=== PATIENT | female | born 1995 ===

== ENCOUNTER 2018-11-25 17:02 | Emergency (ER) | payer BC ==
[2018-11-25 17:22] VITALS: BP 124/76; PULSE 98; RESP 18; TEMP 98.1; O2SAT 95
--- NOTE | 2018-11-25 18:38 | C.PDOC ---
History Of Present Illness 23 year old female presents to the ED complaining of allergic reaction for 3 days. Notes itching rash to face. Denies eating anything new or using any new products. Reports she took Benadryl and Zyrtec without relief. Denies prior episodes of similar symptoms. Reports she was on vacation in [place] during onset of symptoms. Denies any shortness of breath, throat swelling, mouth swelling, difficulty eating, fever, chills, or any other complaints. Time Seen by Provider: 11/25/18 18:06 Chief Complaint (Nursing): Allergic Reaction History Per: Patient History/Exam Limitations: no limitations Onset/Duration Of Symptoms: Days (3) Current Symptoms Are (Timing): Still Present Possible Cause: Unknown Associated Symptoms: Skin Rash, Itching. denies: Trouble Swallowing Home/EMS Treatment: Benadryl, Other (Zyrtec ) Past Medical History Reviewed: Historical Data, Nursing Documentation, Vital Signs Vital Signs: Last Vital Signs Temp 98.1 F 11/25/18 17:17 Pulse 98 H 11/25/18 17:17 Resp 18 11/25/18 17:17 BP 124/76 11/25/18 17:17 Pulse Ox 95 11/25/18 17:17 - Medical History PMH: Asthma Surgical History: No Surg Hx Family History: States: No Known Family Hx - Social History Hx Alcohol Use: Yes Hx Substance Use: No - Immunization History Hx Tetanus Toxoid Vaccination: No Hx Influenza Vaccination: No Hx Pneumococcal Vaccination: No Review Of Systems Except As Marked, All Systems Reviewed And Found Negative. Constitutional: Negative for: Fever, Chills Eyes: Negative for: Vision Change ENT: Negative for: Mouth Swelling, Throat Pain, Throat Swelling Cardiovascular: Negative for: Chest Pain, Palpitations Respiratory: Negative for: Cough, Shortness of Breath Gastrointestinal: Negative for: Nausea, Vomiting, Abdominal Pain Musculoskeletal: Negative for: Neck Pain, Back Pain Skin: Positive for: Rash (face ) Neurological: Negative for: Weakness, Numbness, Headache, Dizziness Physical Exam - Physical Exam Appears: Well, Non-toxic, No Acute Distress Skin: Warm, Dry, Other (urticaria to face, mild swelling around both eyes, no warmth, no tenderness) Head: Normacephalic Eye(s): bilateral: Normal Inspection, PERRL, EOMI Ear(s): Bilateral: Normal Nose: Normal Oral Mucosa: Moist Tongue: Normal Appearing, No Swelling Lips: Normal Appearing, No Swelling Teeth: Normal Dentition Gingiva: Normal Appearing, No Swelling Throat: Normal, No Erythema Neck: Normal ROM, Supple Chest: Symmetrical Cardiovascular: Rhythm Regular Respiratory: Normal Breath Sounds, No Rales, No Rhonchi, No Wheezing Back: Normal Inspection Extremity: Normal ROM, Capillary Refill (<2s), No Swelling Pulses: Left Radial: Normal, Right Radial: Normal Neurological/Psych: Oriented x3, Normal Speech, Normal Motor, Normal Sensation Gait: Steady ED Course And Treatment O2 Sat by Pulse Oximetry: 95 (RA) Pulse Ox Interpretation: Normal Medical Decision Making Medical Decision Making: Plan - Benadryl 25mg PO - Pepcid 20mg PO - Prednisone 60mg PO - POC Urine Preg Patient reports resolution of itchiness and improvement in rash and swelling after medications. Continues to deny SOB and mouth/throat/lip swelling. Will advise followup with PMD, patient verbalizes understanding and states she will followup as instructed. Diagnostic testing results and plan of care discussed with patient. Strict instructions given regarding prescription use, importance of followup, and signs/symptoms to return to ER including difficulty breathing, vision changes, eye pain or any other new/worsening symptoms. Pt verbalized understanding of discussion. Patient is A&Ox3, ambluating with steady gait, with vital signs stable for discharge. Disposition - Disposition Referrals: [facility] [Outside] Disposition: HOME/ ROUTINE Disposition Time: 19:00 Condition: STABLE Additional Instructions: Increase fluids 2 tabs prednisone every day for 4 days pepcid every 12 hours for 4 days Benadryl every 6 hours as needed for itching Followup with primary doctor tomorrow Return to ER with any new/worsening symptoms Prescriptions: DiphenhydrAMINE [Benadryl] 25 mg PO Q6H PRN #16 cap PRN Reason: Itching / Pruritus Famotidine [Pepcid] 20 mg PO Q12H #8 tab Prednisone [Deltasone] 40 mg PO DAILY #8 tablet Instructions: Hives Forms: General Discharge Instructions, [facility] (Georgian), Work Excuse - Clinical Impression Clinical Impression: Allergic urticaria - 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 - Scribe Statement The provider has reviewed the documentation as recorded by the Scribe Yasmeen Bird All medical record entries made by the Scribcherelle were at my direction and personally dictated by me. I have reviewed the chart and agree that the record accurately reflects my personal performance of the history, physical exam, medical decision making, and the department course for this patient. I have also personally directed, reviewed, and agree with the discharge instructions and disposition.
== END 2018-11-25 19:21 | disposition home or self-care (01) ==
LOC: C.ER 17:02
DX: L50.0 Allergic urticaria (principal)

== ENCOUNTER 2018-11-27 15:55 | Outpatient (CLI) | payer BC | END 2018-11-27 15:56 | disposition home or self-care (01) | LOC: C.LAB 15:55 | DX: E66.9 Obesity, unspecified (principal) ==